=== PATIENT | female | born 1990 | race Caucasian/White ===

== ENCOUNTER 2022-01-14 16:25 | Emergency (ER) | payer OTHER ==
[2022-01-14 17:33] LABS: BASOPHIL 0.5 % (0-2); EOSINOPHIL 1.8 % (0-5); HCT 42.7 % (37.0-47.0); HGB 14.4 g/dl (12.5-16.0); LYMPHOCYTE 13.9 % (15-48); MCH 29.9 pg (25.0-31.0); MCHC 33.7 g/dL (32.0-36.0); MCV 88.8 fL (78.0-100.0); MONOCYTE 7.4 % (0-12); MPV 11.5 fL (6.0-9.5); NRBC 0; PLT 239 K/uL (150-400); RBC 4.81 M/uL (4.20-5.40); RDW 12.3 % (11.5-14.0); WBC 8.4 K/uL (4.0-10.5)
[2022-01-14 17:41] LABS: BUN/CREAT RATIO (CALC) 13.5 RATIO; CREATININE 0.74 mg/dL (0.51-0.95); POTASSIUM 3.7 mmol/L (3.5-5.1)
[2022-01-14 18:16] LABS: CORONAVIRUS 2019 SARS-COV-2 NEGATIVE (NEGATIVE); INFLUENZA A NAA POSITIVE (NEGATIVE)
== END 2022-01-14 19:40 | disposition home or self-care (01) ==
LOC: FER 16:25
PROVIDERS: Emergency Medicine
DX: R07.89 Other chest pain (principal); J10.1 Influenza due to other identified influenza virus with other respiratory manifestations; J45.909 Unspecified asthma, uncomplicated; Z20.822 Contact with and (suspected) exposure to COVID-19
CPT/HCPCS: 36415; 71045; 80048; 84484; 85025; 93005; J1885; U0002